=== PATIENT | male | born 1960 | race Caucasian/White ===

== ENCOUNTER 2022-07-29 19:47 | Emergency (ER) | payer OTHER ==
[2022-07-29] MEDS ORDERED: TETRACAINE HCL 0.5% 4ML OPTH ONE (20:45)
--- NOTE | 2022-07-29 21:03 | ER ---
Nurse's Notes [facility] Name: Yony Mcdaniel Jr Age: 61 yrs Sex: Male : 1960 Arrival Date: 07/29/2022 Time: 19:50 Bed 24 Private MD: Diagnosis: Ocular pain, right eye;Acute maxillary sinusitis, unspecified Presentation: 07/29 20:28 Chief complaint: Patient states: Patient C/O right eye pain of 10,onset 3 days. Patient pf1 stated has hx of closed angle glaucoma and cataracts. Patient denies any eye injury. Coronavirus screen: Vaccine status: Patient reports receiving the 2nd dose of the covid vaccine. Client denies travel out of the [place] in the last 14 days. At this time, the client does not indicate any symptoms associated with coronavirus-19. Ebola Screen: Patient negative for fever greater than or equal to 101.5 degrees Fahrenheit, and additional compatible Ebola Virus Disease symptoms. Mechanism of Injury: No Mechanism of Injury. The patient denies any loss of vision. Initial Sepsis Screen: Does the patient meet any 2 criteria? No. Patient's initial sepsis screen is negative. Does the patient have a suspected source of infection? No. Patient's initial sepsis screen is negative. Risk Assessment: Do you want to hurt yourself or someone else? Patient reports no desire to harm self or others. Onset of symptoms was July 26, 2022. 20:28 Method Of Arrival: Ambulatory pf1 20:28 Acuity: ARSENIO 2 bb Historical: - Allergies: 20:33 Codeine; pf1 20:33 PENICILLINS; pf1 - PMHx: 20:33 bowel obstruction; Kidney stones; narcolepsy; scoliosis; Myocardial infarction; pf1 Glaucoma; Cataract; - PSHx: 20:33 cardiac stent 1; pf1 20:34 cataract surgery of left eye; bowel obstruction surgery 18 inch removed; pf1 - Immunization history:: unknown. - Family history:: not pertinent. - Social history:: Smoking status: unknown. - Hospitalizations: : No recent hospitalization is reported. Screenin:45 [facility] ED Fall Risk Assessment (Adult) History of falling in the last 3 months, bb including since admission No falls in past 3 months (0 pts). Abuse screen: Denies threats or abuse. Nutritional screening: No deficits noted. Tuberculosis screening: No symptoms or risk factors identified. Assessment: 20:45 General: Appears in no apparent distress. uncomfortable, Behavior is cooperative, bb anxious. Pain: Complains of pain in right eye. Neuro: Level of Consciousness is awake, alert, obeys commands, Oriented to person, place, time, situation. Cardiovascular: Capillary refill < 3 seconds Patient's skin is warm and dry. Respiratory: Respiratory effort is even, unlabored, Respiratory pattern is regular. GI: No signs and/or symptoms were reported involving the gastrointestinal system. EENT: Eyes pt reports right eye pain. Sclera/Cornea are clear in right eye. Derm: Skin is pink, warm \T\ dry. Musculoskeletal: Circulation, motion, and sensation intact. 21:17 Reassessment: Patient is alert, oriented x 3, equal unlabored respirations, skin bb warm/dry/pink. pt verbalized understanding of and agrees to plan of care discharge instructions given pt ambulated with steady gait to exit. Vital Signs: 20:28 BP 112 / 92; Pulse 86; Resp 18; Temp 98.8; Pulse Ox 97% ; Weight 95.25 kg; Height 5 ft. pf1 11 in. (180.34 cm); Pain 10/10; 20:28 Body Mass Index 29.29 (95.25 kg, 180.34 cm) pf1 ED Course: 19:50 Patient arrived in ED. as 19:59 Armond Merritt MD is Attending Physician. rn 20:33 Triage completed. pf1 20:45 Patient has correct armband on for positive identification. bb 20:45 Assist provider with eye exam of right eye. using tonopin Performed by Armond robles Patient tolerated well. Patient did not have IV access during this emergency room visit. 21:02 Rogelio Johnson MD is Referral Physician. rn Administered Medications: 20:45 Drug: Tetracaine Drops 0.5 % 1 drops {Note: administered by Dr Merritt.} Route: bb Ophthalmic; Site: right eye; 21:05 Drug: traMADol 50 mg Route: PO; bb 21:05 Drug: Zithromax (azithromycin) 500 mg Route: PO; bb Medication: 20:45 VIS not applicable for this client. bb Outcome: 21:02 Discharge ordered by . rn 21:17 Discharged to home ambulatory. bb 21:17 Condition: stable 21:17 Discharge instructions given to patient, Instructed on discharge instructions, follow up and referral plans. medication usage, Demonstrated understanding of instructions, follow-up care, medications, Prescriptions given X 2. 21:17 Patient left the ED. bb Signatures: Lesly London Brenda RN RN bb Armond Merritt MD MD rn finley, Pamala, RN RN pf1 Corrections: (The following items were deleted from the chart) 20:39 20:28 Acuity: ARSENIO 4 pf1 bb
--- NOTE | 2022-07-29 21:03 | EDPHYS ---
Physician Documentation [facility] Name: Yony Mcdaniel Jr Age: 61 yrs Sex: Male : 1960 Arrival Date: 07/29/2022 Time: 19:50 Bed 24 Private MD: ED Physician Armond Merritt HPI: 07/29 20:54 This 61 yrs old Male presents to ER via Ambulatory with complaints of Eye Pain. rn 20:54 The patient is experiencing pain, to the right eye. Onset: The symptoms/episode rn began/occurred 2 day(s) ago. Duration: the symptoms are intermittent. Aggravated by nothing. Alleviated by. Severity of symptoms: At their worst the symptoms were moderate in the emergency department the symptoms are unchanged. The patient has experienced similar episodes in the past. The patient has not recently seen a physician. Pt reports concerned he has acute angle closure glaucoma, has had multiple times in past, his eye drops are not working, no trauma, no vision changes. Reports also having cough with sputum, sinus pressure, and right facial pain. . Historical: - Allergies: 20:33 Codeine; pf1 20:33 PENICILLINS; pf1 - PMHx: 20:33 bowel obstruction; Kidney stones; narcolepsy; scoliosis; Myocardial infarction; pf1 Glaucoma; Cataract; - PSHx: 20:33 cardiac stent 1; pf1 20:34 cataract surgery of left eye; bowel obstruction surgery 18 inch removed; pf1 - Immunization history:: unknown. - Family history:: not pertinent. - Social history:: Smoking status: unknown. - Hospitalizations: : No recent hospitalization is reported. ROS: 20:54 Constitutional: Negative for fever, chills, and weight loss, Eyes: + right eye pain rn testing: + sinus pressure Neck: Negative for injury, pain, and swelling, Cardiovascular: Negative for chest pain, palpitations, and edema, Respiratory: + cough Abdomen/GI: Negative for abdominal pain, nausea, vomiting, diarrhea, and constipation, Back: Negative for injury and pain, MS/Extremity: Negative for injury and deformity, Skin: Negative for injury, rash, and discoloration, Neuro: Negative for headache, weakness, numbness, tingling, and seizure. Exam: 20:54 Constitutional: This is a well developed, well nourished patient who is awake, alert, rn and in no acute distress. Head/Face: Normocephalic, atraumatic. Eyes: Right eye pressure measured with tonopen, twice, was 17 and 20. PERRL. ENT: Mucous membranes moist. Cardiovascular: Regular rate and rhythm. No pulse deficits. Respiratory: No increased work of breathing, no retractions or nasal flaring. Skin: Warm, dry with normal turgor. Normal color with no rashes, no lesions, and no evidence of cellulitis. Neuro: Awake and alert, GCS 15, oriented to person, place, time, and situation. Cranial nerves II-XII grossly intact. Motor strength 5/5 in all extremities. Sensory grossly intact. Cerebellar exam normal. Normal gait. Vital Signs: 20:28 BP 112 / 92; Pulse 86; Resp 18; Temp 98.8; Pulse Ox 97% ; Weight 95.25 kg; Height 5 ft. pf1 11 in. (180.34 cm); Pain 10/10; 20:28 Body Mass Index 29.29 (95.25 kg, 180.34 cm) pf1 MDM: 19:59 Patient medically screened. rn 20:54 Differential diagnosis: acute glaucoma, sinusitis, URI. Data reviewed: vital signs, rn nurses notes, and as a result, I will discharge patient. Counseling: I had a detailed discussion with the patient and/or guardian regarding: the historical points, exam findings, and any diagnostic results supporting the discharge/admit diagnosis, the need for outpatient follow up, to return to the emergency department if symptoms worsen or persist or if there are any questions or concerns that arise at home. Special discussion: I discussed with the patient/guardian in detail that at this point there is no indication for admission to the hospital. It is understood, however, that if the symptoms persist or worsen the patient needs to return immediately for re-evaluation. Based on the history and exam findings, there is no indication for further emergent testing or inpatient evaluation. I discussed with the patient/guardian the need to see the opthamologist for further evaluation of the symptoms, I discussed with the patient/guardian the need to see the primary care provider for further evaluation of the symptoms. Administered Medications: 20:45 Drug: Tetracaine Drops 0.5 % 1 drops {Note: administered by Dr Merritt.} Route: bb Ophthalmic; Site: right eye; 21:05 Drug: traMADol 50 mg Route: PO; bb 21:05 Drug: Zithromax (azithromycin) 500 mg Route: PO; bb Disposition Summary: 07/29/22 21:02 Discharge Ordered Location: Home rn Problem: new rn Symptoms: have improved rn Condition: Stable rn Diagnosis - Ocular pain, right eye rn - Acute maxillary sinusitis, unspecified rn Followup: rn - With: Rogelio Johnson MD - When: As needed - Reason: Recheck today's complaints, Re-evaluation by your physician Discharge Instructions: - Discharge Summary Sheet rn - Sinusitis, Adult rn Forms: - Medication Reconciliation Form rn - Thank You Letter rn - 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 Day 2, 3, 4 , 5 take one (1) tablet once daily.; 6 tablet; Refills: 0, Product Selection Permitted Signatures: Ct Rosas RN RN Armond Nina MD MD rn finley, Pamala, RN RN pf1
[2022-07-29] MEDS ORDERED: TRAMADOL HCL 50 MG TAB ONE (21:06)
[2022-07-29] MEDS ORDERED: AZITHROMYCIN 250 MG TAB ONE (21:06)
[2022-07-29 21:22] VITALS: BP 112/92; TEMP 98.8; O2SAT 97
== END 2022-07-29 21:17 | disposition home or self-care (01) ==
LOC: ER 19:47
DX: J01.00 Acute maxillary sinusitis, unspecified (principal); Z88.0 Allergy status to penicillin; Z88.5 Allergy status to narcotic agent; Z95.818 Presence of other cardiac implants and grafts
CPT/HCPCS: 99283; Q0144

== ENCOUNTER 2022-08-03 18:14 | Emergency (ER) | payer OTHER ==
[2022-08-03] MEDS ORDERED: TRAMADOL HCL 50 MG TAB ONE (18:38)
--- NOTE | 2022-08-03 18:59 | RAD REPORT ---
EXAM DESCRIPTION: CT - Head Brain Wo Cont - 08/03/2022 6:49 pm CLINICAL HISTORY: headache COMPARISON: None TECHNIQUE: All CT scans are performed using dose optimization technique as appropriate and may inclu de automated exposure control or mA/KV adjustment according to patient size. FINDINGS: No intracranial hemorrhage, hydrocephalus or extra-axial fluid collection.No areas of brai n edema or evidence of midline shift. Right mastoid fluid. Circumferential thickening within both of the maxillary sinuses is well some of the ethmoid air cells. The calvarium is intact. IMPRESSION: No acute intracranial abnormality.
[2022-08-03] MEDS ORDERED: TETRACAINE HCL 0.5% 4ML OPTH ONE (21:17)
[2022-08-03] MEDS ORDERED: FLUORESCEIN SODIUM 1 MG/WRAP ONE (21:17)
--- NOTE | 2022-08-03 22:13 | EDPHYS ---
Physician Documentation [facility] Name: Yony Mcdaniel Jr Age: 61 yrs Sex: Male : 1960 Arrival Date: 08/03/2022 Time: 18:16 Bed 13 Private MD: ED Physician Matthieu Zuñiga HPI: 08/03 23:08 This 61 yrs old Male presents to ER via Ambulatory with complaints of Sinus Pain, kb Vomiting. 23:08 The patient or guardian reports Congestion, sinus pain. Onset: The symptoms/episode kb began/occurred last week. Severity of symptoms: At their worst the symptoms were severe, in the emergency department the symptoms are unchanged. Modifying factors: The symptoms are alleviated by nothing, the symptoms are aggravated by nothing. Associated signs and symptoms: Pertinent positives: rhinorrhea. The patient has not experienced similar symptoms in the past. The patient has not recently seen a physician. Patient reports he was seen last week for congestion, sinus pain, right eye pain. Was given Zithromax and told to follow-up with Dr. Johnson. States he finished antibiotics has not followed up but the pain is more severe behind right eye.. Historical: - Allergies: 18:30 Codeine; ko1 18:30 PENICILLINS; ko1 - PMHx: 18:30 bowel obstruction; Cataract; Kidney stones; Myocardial infarction; narcolepsy; ko1 scoliosis; Glaucoma; - PSHx: 18:30 bowel obstruction surgery 18 inch removed; cataract surgery of left eye; cardiac stent ko1 1; - Immunization history:: Adult Immunizations unknown. - Social history:: Smoking status: Patient denies any tobacco usage or history of. ROS: 23:06 Constitutional: Negative for fever, chills, and weight loss. kb 23:06 ENT: Positive for sinus pain. 23:06 Neuro: Positive for headache. 23:06 All other systems are negative. Exam: 23:06 ENT: Moist Mucous membranes Cardiovascular: Regular rate and rhythm with a normal S1 kb and S2. No gallops, murmurs, or rubs. No pulse deficits. Respiratory: Respirations even and unlabored. No increased work of breathing. Talking in full sentences Abdomen/GI: Soft, non-tender. No distention Skin: Warm, dry with normal turgor. Normal color. MS/ Extremity: Pulses equal, no cyanosis. Neurovascular intact. Full, normal range of motion. Neuro: Awake and alert, GCS 15, oriented to person, place, time, and situation. Moves all extremities. Normal gait. Psych: Awake, alert, with orientation to person, place and time. Behavior, mood, and affect are within normal limits. 23:06 Constitutional: The patient appears alert, awake, in obvious pain. 23:06 Head/face: Sinus tenderness, that is marked, is located over the right frontal sinus, right ethmoid sinus and right maxillary sinus. 23:06 Eyes: Periorbital structures: appear normal, Pupils: equal, round, and reactive to light and accomodation, Extraocular movements: intact throughout, Conjunctiva: normal. 23:06 Eyes: Intraocular pressure: right eye = 18mmHg. kb Vital Signs: 18:27 BP 136 / 69; Pulse 65; Resp 22; Temp 98.1; Pulse Ox 99% ; Weight 95.25 kg; Height 5 ft. ko1 11 in. (180.34 cm); Pain 10/10; 18:27 Body Mass Index 29.29 (95.25 kg, 180.34 cm) ko1 MDM: 18:32 Patient medically screened. kb 23:06 Differential Diagnosis: Upper Respiratory Infection Sinusitis Other Glaucoma. Data kb reviewed: vital signs, nurses notes. Counseling: I had a detailed discussion with the patient and/or guardian regarding: the historical points, exam findings, and any diagnostic results supporting the discharge/admit diagnosis, radiology results, the need for outpatient follow up, a family practitioner, to return to the emergency department if symptoms worsen or persist or if there are any questions or concerns that arise at home. 23:08 ED course: Patient will follow-up with Dr. Johnson. Will call first in the morning.. kb 08/03 18:32 Order name: CT Head Brain wo Cont; Complete Time: 19:00 kb 08/03 20:53 Order name: Eye Tray: tonopen; Complete Time: 21:16 kb Administered Medications: 18:35 Drug: traMADol 50 mg Route: PO; ko1 22:10 Drug: Tetracaine Drops 0.5 % 1 drops {Note: by PREMIUM AUDITOR.} Route: Ophthalmic; Site: right eye;ke1 Disposition Summary: 08/03/22 22:13 Discharge Ordered Location: Home kb Condition: Stable kb Diagnosis - Acute sinusitis, unspecified kb Followup: kb - With: Emergency Department - When: As needed - Reason: Worsening of condition Followup: kb - With: Private Physician - When: 2 - 3 days - Reason: Recheck today's complaints, Continuance of care, Re-evaluation by your physician Followup: kb - With: Rogelio Johnson MD - When: Tomorrow - Reason: Recheck today's complaints Discharge Instructions: - Discharge Summary Sheet kb - Sinusitis, Adult, Hbic-[id number]-Mhcv kb Forms: - Medication Reconciliation Form kb - Thank You Letter kb - Antibiotic Education kb - Prescription Opioid Use kb Prescriptions: - Doxycycline Hyclate 100 mg Oral Tablet - take 1 tablet by ORAL route every 12 hours; 20 tablet; Refills: 0, Product kb Selection Permitted - Diclofenac Sodium 75 mg Oral tablet,delayed release (DR/EC) - take 1 tablet by ORAL route 2 times per day As needed; 30 tablet; Refills: 0, kb Product Selection Permitted Signatures: Dispatcher [employer] EDNina Davison, PREMIUM AUDITOR-C INDRA-Amy Sweet, RN RN ke1 Lilian Ferrari, RN RN ko1
--- NOTE | 2022-08-03 22:13 | ER ---
Nurse's Notes [facility] Name: Yony Mcdaniel Jr Age: 61 yrs Sex: Male : 1960 Arrival Date: 08/03/2022 Time: 18:16 Bed 13 Private MD: Diagnosis: Acute sinusitis, unspecified Presentation: 08/03 18:27 Chief complaint: Patient states: right eye pain, was here last Thursday and diagnosed ko1 with sinus infection. Took all of the meds prescribed and has had no relief. Now having nausea and vomiting, took covid test and was negative. Coronavirus screen: At this time, the client does not indicate any symptoms associated with coronavirus-19. Ebola Screen: No symptoms or risks identified at this time. Initial Sepsis Screen: Does the patient meet any 2 criteria? No. Patient's initial sepsis screen is negative. Does the patient have a suspected source of infection? No. Patient's initial sepsis screen is negative. Risk Assessment: Do you want to hurt yourself or someone else? Patient reports no desire to harm self or others. Onset of symptoms was August 03, 2022. 18:27 Method Of Arrival: Ambulatory ko1 18:27 Acuity: ARSENIO 3 ko1 Triage Assessment: 18:30 Headache History: The patient has had previous headaches and this one is similar to ko1 previous episodes. General: Appears distressed, uncomfortable, Behavior is calm, cooperative, appropriate for age, crying, restless. Pain: Pain currently is 10 out of 10 on a pain scale. Pain began gradually, Also complains of nausea. Neuro: Reports blurred vision. Historical: - Allergies: 18:30 Codeine; ko1 18:30 PENICILLINS; ko1 - PMHx: 18:30 bowel obstruction; Cataract; Kidney stones; Myocardial infarction; narcolepsy; ko1 scoliosis; Glaucoma; - PSHx: 18:30 bowel obstruction surgery 18 inch removed; cataract surgery of left eye; cardiac stent ko1 1; - Immunization history:: Adult Immunizations unknown. - Social history:: Smoking status: Patient denies any tobacco usage or history of. Screenin:33 [facility] ED Fall Risk Assessment (Adult) History of falling in the last 3 months, ke1 including since admission No falls in past 3 months (0 pts) Confusion or Disorientation No (0 pts) Intoxicated or Sedated No (0 pts) Impaired Gait No (0 pts) Mobility Assist Device Used No (0 pt) Altered Elimination No (0 pt) Score/Fall Risk Level 0 - 2 = Low Risk. Abuse screen: Denies threats or abuse. Nutritional screening: No deficits noted. Tuberculosis screening: No symptoms or risk factors identified. Vital Signs: 18:27 BP 136 / 69; Pulse 65; Resp 22; Temp 98.1; Pulse Ox 99% ; Weight 95.25 kg; Height 5 ft. ko1 11 in. (180.34 cm); Pain 10/10; 18:27 Body Mass Index 29.29 (95.25 kg, 180.34 cm) ko1 ED Course: 18:16 Patient arrived in ED. rg4 18:30 Triage completed. ko1 18:30 Arm band placed on left wrist. ko1 18:32 Nina Centeno FNP-C is [facility]. kb 18:32 Matthieu Zuñiga MD is Attending Physician. kb 18:38 Patient placed in waiting room, Patient notified of wait time Emesis basin given. ko1 18:51 CT Head Brain wo Cont In Process Unspecified. EDMS 21:37 Amy Quezada, JEY is Primary Nurse. ke1 22:00 Call light in reach. ke1 22:13 Rogelio Johnson MD is Referral Physician. kb 22:50 No provider procedures requiring assistance completed. Patient did not have IV access ke1 during this emergency room visit. Administered Medications: 18:35 Drug: traMADol 50 mg Route: PO; ko1 22:10 Drug: Tetracaine Drops 0.5 % 1 drops {Note: by MERCHANDISING STOCK ASSOCIATE.} Route: Ophthalmic; Site: right eye;ke1 Medication: 22:51 VIS not applicable for this client. ke1 Outcome: 22:13 Discharge ordered by MD. kb 22:50 Discharged to home ambulatory. ke1 22:50 Condition: good 22:50 Discharge instructions given to patient. 22:51 Patient left the ED. ke1 Signatures: Dispatcher [employer] EDMS Nina Centeno FNP-C FNP-Ckb Garcia, Rubi rg4 Amy Quezada RN RN ke1 Lilian Ferrari RN RN ko1
[2022-08-03 23:48] VITALS: BP 136/69; TEMP 98.1; O2SAT 99
== END 2022-08-03 22:51 | disposition home or self-care (01) ==
LOC: ER 18:14
DX: J01.90 Acute sinusitis, unspecified (principal); R11.10 Vomiting, unspecified; R51.9 Headache, unspecified; Z95.818 Presence of other cardiac implants and grafts; Z88.0 Allergy status to penicillin; Z88.5 Allergy status to narcotic agent
CPT/HCPCS: 70450; 99283

== ENCOUNTER 2022-08-05 14:30 | Day surgery (SDC) | payer OTHER ==
[2022-08-05 15:14] LABS: Absolute Lymphocytes (CBC) 1.3 K/uL (0.7-4.9); Hematocrit 49.8 % (39.6-49.0); Lymphocytes % 18.6 % (15.3-44.8); MCV 91.5 fL (80-100); RBC Red Blood Cell Count 5.44 M/uL (4.33-5.43)
[2022-08-05] MEDS ORDERED: Ringers Lactate 1,000 ML IV ONE (15:18)
[2022-08-05 15:34] LABS: ALT/SGPT 30 U/L (16-61); AST/SGOT 21 U/L (15-37); Albumin 4.3 g/dL (3.4-5.0); Alkaline Phosphatase 95 U/L (45-117); BUN Blood Urea Nitrogen 29 mg/dL (7-18); Bicarbonate 26 mmol/L (21-32); Bilirubin Total 1.3 mg/dL (0.2-1.0); Glomerular Filtration Rate 102 ml/min (=/>90); Glucose Level 98 mg/dL (74-106); Potassium 3.7 mmol/L (3.5-5.1); Protein, Total 7.6 g/dL (6.4-8.2); Sodium Level 139 mmol/L (136-145)
[2022-08-05 15:40] LABS: C-Reactive Protein < 2.90 mg/L (<3.00)
[2022-08-05] MEDS ORDERED: SUCCINYLCHOLINE 20 MG/ML (10 ML) IV ONE (20:03)
[2022-08-05] MEDS ORDERED: propofoL 200 MG/20 ML VIAL IV ONE (20:04)
[2022-08-05] MEDS ORDERED: FENTANYL CITR 100 MCG/2 ML ONE ×2 (20:05→20:45)
[2022-08-05] MEDS ORDERED: MIDAZOLAM HCL 2 MG/2 ML INJ ONE (20:05)
[2022-08-05] MEDS ORDERED: EPINEPHRINE/PF 1 MG/ML AMP ONE (20:09)
[2022-08-05] MEDS ORDERED: BUPIVACAINE 0.5% PF 10 ML VIAL ONE (20:09)
[2022-08-05] MEDS ORDERED: LIDOCAINE 1% W/EPI 1:100,000 50 ML MDV ONE (20:10)
[2022-08-05] MEDS: Ringers Lactate 1,000 ML IV ONE ×2 (21:30→23:19)
[2022-08-05] MEDS: FENTANYL CITR 100 MCG/2 ML ONE ×3 (21:45→21:55)
--- NOTE | 2022-08-05 21:52 | P.OP ---
General Car Supervisor Yard: NONE,NONE Preoperative diagnosis: Severe headache, evaluate for temporal arteritis Postoperative diagnosis: Same Primary procedure: Right temporal artery biopsy Anesthesia: General via LMA Estimated blood loss: 10 mL Specimen: Right temporal artery, permanent section Operative Technique: The patient presented to the ER on July 29 and August 03 with severe pain behind the right eye and headache. He was treated with azithromycin initially without improvement. On his second presentation he underwent a CT scan of the head that showed significant left maxillary sinusitis with mild right maxillary and ethmoid sinusitis. He presented to the ENT clinic for urgent follow-up. He continued to have severe right-sided headache, right temporal tenderness, and pain out of proportion to his CT findings in regards to sinusitis. Based on his clinical presentation, I was concerned about temporal arteritis and recommended an urgent temporal artery biopsy for diagnosis. The risks benefits and alternatives to the procedure were discussed with the patient who agreed to proceed. Patient was brought to the operating room he was placed under general anesthesia via LMA. The patient was positioned supine with the right side of the head turned slightly outward at approximately a 30 degree angle. The right tenriism was noted to have well-healed scar from prior skin cancer surgery. The temporal artery was barely palpable but there was a strong Doppler signal noted. The anticipated surgical area was injected with 5 mL of 0.5% plain Marcaine. A 3 cm incision was made through the skin and subcutaneous tissues. There is significant bleeding from the skin edges consistent with the patient's hypervascularity of the skin due to chronic skin and sun damage. The skin edges were cauterized using needlepoint Bovie and the subcutaneous tissues were carefully dissected. The superficial layer of the temporal fascia was identified and was noted to be scarred and hypervascular. Areas of bleeding were clamped and treated with the LigaSure to control bleeding. Division of this fascia revealed pulsations consistent with the temporal artery. The temporal artery was carefully traced superiorly and inferiorly. After approximately a 3 cm segment was identified, the ends were clamped and tied with silk suture. The artery was carefully elevated and divided from the underlying vasculature with LigaSure to ensure division of any small feeding vessels. Additional cauterization was performed and some of the fascial planes to ensure hemostasis. The incision was then closed in layered fashion using 4-0 deep Vicryl buried sutures and a 4-0 running Monocryl suture. Due to the skin's hypervascularity, I elected not to attempt subcuticular closure. The patient had oozing from all of the needle sticks and direct pressure was applied to the incision for about 4 minutes. The area around the incision was then injected with about 5 mL of 1% lidocaine with epinephrine to aid in further hemostasis and postoperative pain control. The incision was then additionally dressed with Dermabond and a pressure dressing. The patient was then returned to care of anesthesia for awakening and transportation to the recovery room which proceeded without difficulty. Based on the preoperative diagnosis, the patient was administered 100 mg of prednisone orally prior to discharge from the hospital. A prescription for prednisone 100 mg daily was sent to [facility] to start on August 07. The patient is scheduled to follow-up with the director of rehabilitation and wellness at 10 AM on ThuAugust 07. He can follow-up with Dr. Taylor in about 1 week to discuss biopsy results and further disposition. Complications: None Implants: None Fluids & blood products: See anesthesia record Transferred to: Recovery Room Condition: Good
[2022-08-05] MEDS: MORPHINE 4 MG/ML SYR ONE ×2 (22:06→22:17)
[2022-08-05] MEDS ORDERED: TRAMADOL HCL 50 MG TAB ONE (22:15)
[2022-08-05] MEDS ORDERED: predniSONE 20 MG TAB ONE (22:26)
[2022-08-05 23:04] VITALS: BP 130/77; TEMP 98; O2SAT 97
[2022-08-05] MEDS ORDERED: ONDANSETRON 4 MG/2 ML VIAL ONE (23:05)
== END 2022-08-05 23:20 | disposition home or self-care (01) ==
LOC: OR 14:30
PROVIDERS: ATTEND Otolaryngology
PROC: 03BS0ZX Excision of Right Temporal Artery, Open Approach, Diagnostic (ICD-10-PCS; principal; 2022-08-05 15:45)
DX: I70.8 Atherosclerosis of other arteries (principal); R51.9 Headache, unspecified
CPT/HCPCS: 37609; 93005; 85025; 36415; 88305; 80053; 86140; J2704; J7512; J2250; J3010 ×3; J7120 ×2; J2405; J0171; J0330